=== PATIENT | male | born 1995 | race Caucasian/White ===

== ENCOUNTER 2021-09-03 18:22 | Emergency (ER) | payer SELFPAY ==
[~2021-09-03] VITALS: Ht 167.6 cm; Wt 59.0 kg
[2021-09-03 18:22] VITALS: BP 134/89
--- NOTE | 2021-09-03 19:49 | NUR ---
PT STATED "I'M JUST GONNA LEAVE." PATIENT ELOPED FROM FACILITY. DISCHARGE INSTRUCTIONS NOT GIVEN TO PATIENT. DR. ZAMBRANO NOTIFIED.
== END 2021-09-03 19:49 | disposition left against medical advice (07) ==
LOC: MED 18:22
DX: S80.11XA Contusion of right lower leg, initial encounter (principal); M79.642 Pain in left hand; V89.2XXA Person injured in unspecified motor-vehicle accident, traffic, initial encounter; Y93.89 Activity, other specified; Y92.410 Unspecified street and highway as the place of occurrence of the external cause; Y99.8 Other external cause status
CPT/HCPCS: 99283